=== PATIENT | male | born 1990 | race Caucasian/White ===

== ENCOUNTER 2023-01-16 09:22 | Emergency (ER) | payer SELFPAY ==
[~2023-01-16] VITALS: Ht 172.7 cm; Wt 72.6 kg
[2023-01-16 09:28] VITALS: BP_SYST 132
--- NOTE | 2023-01-16 09:28 | NUR ---
DR. SKY AT BEDSIDE EXAMINING THE PT.
--- NOTE | 2023-01-16 09:29 | NUR ---
PT BIB EMS FROM THE STREET WITH C/O ETOH. PT STATES HE HAS BEEN DRINKING SINCE DAY HARD LIQUORS. PT STATE HE FEELS CHEST PAIN AND HAS HAD EPISODES OF N/V. ON ARRIVAL, PT IS SHAKING AND IS TACHYCARDIC. PT IS AAX04, VSS, NAD, PT IS BREATHING EVEN AND UNLABORED. PT ON LIVESTOCK COUNTER SHPOWING NSR. PT AMBULATORY WITH STEADY GAIT. HOB ELEVATED, SIDE RAILS UP, BED IN LOWEST POSITION, CALL LIGHT WITHIN REACH. SAFETY PRECAUTION AND COMFORT MEASURES IN PLACE. PENDING MD MCLEAN AND ORDERS.
--- NOTE | 2023-01-16 09:37 | NUR ---
PT ELOPED FROM ED AND WALKED OUT THROUGH [place] ARE[place]. PT WALKED WITH A STEADY GAIT AND LEFT THE ED. PT HAD NO IV IN PLACE. PT VSS. PT LEFT BEHIND HIS MOBLE AND SWEATER. PT'S MOTHER WAS CONTACTED THROUGH PT MOBILE AND MADE AWARE OF PT'S SITUATION AND ELOPEMENT. PT'S MOTHER INFORMED PT'S PROPERTY WILL BE KEPT SAFE AND RETURN TO HER ONCE SHE ARRIVES. NOTIFIED OF PT ELOPING.
[2023-01-16 09:43] VITALS: BP_SYST 132
--- NOTE | 2023-01-16 10:01 | NUR ---
PT MOTHER PICKED UP PT'S MOBILE AND SWEATER. NOTIFIED.
== END 2023-01-16 09:37 | disposition left against medical advice (07) ==
LOC: SED 09:22
DX: F10.129 Alcohol abuse with intoxication, unspecified (principal); Z79.899 Other long term (current) drug therapy; Y90.6 Blood alcohol level of 120-199 mg/100 ml
CPT/HCPCS: 93005; 99283